=== PATIENT | female | born 1995 | race Two or more races ===

== ENCOUNTER 2018-03-07 20:58 | Emergency (ER) | payer MEDICAID ==
[~2018-03-07] VITALS: Ht 157.5 cm; Wt 71.0 kg
[2018-03-07 21:02] VITALS: BP 132/87
[2018-03-07] MEDS ORDERED: CEFTRIAXONE PMX 1GM/50ML 50 ML IVPB ONE (22:00)
[2018-03-07] MEDS ORDERED: AZITHROMYCIN 500 MG in SODIUM CHLORIDE 0.9% 250 ML IVPB ONE (22:00)
== END 2018-03-07 22:15 | disposition home or self-care (01) ==
LOC: ED 22:00
DX: O26.891 Other specified pregnancy related conditions, first trimester (principal); Z3A.08 8 weeks gestation of pregnancy; G89.11 Acute pain due to trauma; R10.33 Periumbilical pain; M54.5 Low back pain; M54.6 Pain in thoracic spine; M25.511 Pain in right shoulder; F31.9 Bipolar disorder, unspecified; F41.9 Anxiety disorder, unspecified
CPT/HCPCS: 76801; 82962; 99284

== ENCOUNTER 2019-01-05 22:53 | Emergency (ER) | payer MEDICAID ==
[~2019-01-05] VITALS: Ht 149.9 cm; Wt 73.5 kg
[2019-01-05 23:18] LABS: MICROSCOPIC NOT IND
[2019-01-05 23:22] LABS: CULTURE INDICATED? NO
--- NOTE | 2019-01-05 23:27 | NUR ---
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
[2019-01-06 00:04] LABS: BASOPHILS # (AUTO) 0.03 x10^3/uL (0-0.1); BASOPHILS % (AUTO) 0 % (0-1); EOSINOPHILS # (AUTO) 0.08 x10^3/uL (0-0.4); EOSINOPHILS % (AUTO) 1 % (1-7); LYMPHOCYTES # (AUTO) 2.81 x10^3/uL (1-3.4); LYMPHOCYTES % (AUTO) 34 % (22-44); MD NO; MEAN CORPUSCULAR HEMOGLOBIN 26.7 pg (27.0-34.8); MEAN CORPUSCULAR HGB CONC 33.2 g/dL (32.4-35.8); MEAN CORPUSCULAR VOLUME 80.7 fL (80-100); MONOCYTES # (AUTO) 0.63 x10^3/uL (0.2-0.8); MONOCYTES % (AUTO) 8 % (2-9); NEUTROPHILS # (AUTO) 4.78 x10^3/uL (1.8-6.8); NEUTROPHILS % (AUTO) 57 % (42-75); PLATELET COUNT 402 x10^3/uL (130-400); RED BLOOD COUNT 4.06 x10^6/uL (3.82-5.3); RED CELL DISTRIBUTION WIDTH 15.7 % (9.6-15.2)
[2019-01-06 00:16] LABS: ALBUMIN 3.7 g/dL (3.4-5.0); ANION GAP 6 mmol/L (5-15); CALCIUM 8.6 mg/dL (8.5-10.1); CHLORIDE 106 mmol/L (98-107)
[2019-01-06 00:22] LABS: ALANINE AMINOTRANSFERASE 62 U/L (12-78); ALKALINE PHOSPHATASE 89 U/L (45-117); BILIRUBIN,TOTAL 0.5 mg/dL (0.2-1.0); TOTAL PROTEIN 7.4 g/dL (6.4-8.2)
[2019-01-06 00:47] VITALS: BP 117/68
--- NOTE | 2019-01-06 00:47 | NUR ---
waiting for US results
--- NOTE | 2019-01-06 01:06 | NUR ---
pt's chart up for recheck
== END 2019-01-06 01:21 | disposition home or self-care (01) ==
LOC: ED 23:21
DX: R10.84 Generalized abdominal pain (principal); R11.2 Nausea with vomiting, unspecified; F31.9 Bipolar disorder, unspecified; F41.1 Generalized anxiety disorder; Z87.891 Personal history of nicotine dependence
CPT/HCPCS: 36415; 74021; 76830; 80053; 81003; 83690; 84703; 85025; 99284